=== PATIENT | male | born 1990 | race African-American/Black ===

== ENCOUNTER 2019-03-23 01:56 | Emergency (ER) | payer OTHER ==
--- NOTE | 2019-03-23 02:39 | ER ---
Nurse's Notes [facility] Name: Christel Belcher Age: 29 yrs Sex: Male : 1990 Arrival Date: 03/23/2019 Time: 02:02 Bed 5 Private MD: Diagnosis: Acute pharyngitis;Acute upper respiratory infection, unspecified Presentation: 03/23 02:00 Presenting complaint: Patient states: Cough and sore throat since Sunday. Transition of cc3 care: patient was not received from another setting of care. Onset of symptoms was March 17, 2019. Risk Assessment: Do you want to hurt yourself or someone else? Patient reports no desire to harm self or others. Initial Sepsis Screen: Does the patient meet any 2 criteria? No. Patient's initial sepsis screen is negative. Does the patient have a suspected source of infection? Yes: Productive cough/pneumonia. Care prior to arrival: None. 02:00 Method Of Arrival: Ambulatory cc3 02:00 Acuity: JAMES 4 cc3 Historical: - Allergies: 02:00 No Known Allergies; cc3 - PMHx: 02:00 bilateral eye problem; cc3 - PSHx: 02:00 eye surgery; cc3 - Immunization history:: Adult Immunizations not up to date. - Social history:: Smoking status: Patient/guardian denies using tobacco, never smoked. - Ebola Screening: : No symptoms or risks identified at this time. Screenin:00 Abuse screen: Denies threats or abuse. Denies injuries from another. Nutritional cc3 screening: No deficits noted. Tuberculosis screening: No symptoms or risk factors identified. Fall Risk Ambulatory Aid- None/Bed Rest/Nurse Assist (0 pts). Gait- Normal/Bed Rest/Wheelchair (0 pts) Mental Status- Oriented to own ability (0 pts). Assessment: 02:00 General: Appears in no apparent distress. uncomfortable, Behavior is calm, cooperative, cc3 appropriate for age. Pain: Denies pain. Neuro: Level of Consciousness is awake, alert, obeys commands, Oriented to person, place, time, situation, Appropriate for age. Cardiovascular: Denies chest pain, Heart tones S1 S2 present Capillary refill < 3 seconds in bilateral fingers Patient's skin is warm and dry. Respiratory: Airway is patent Respiratory effort is even, unlabored, Respiratory pattern is regular, symmetrical. GI: Abdomen is round non-distended. : No signs and/or symptoms were reported regarding the genitourinary system. EENT: Throat with gag reflex present. Derm: Skin is intact, is healthy with good turgor, Skin is normal, black. Musculoskeletal: Circulation, motion, and sensation intact. Range of motion: intact in all extremities. 02:00 Respiratory: Breath sounds are clear bilaterally. cc3 03:00 Reassessment: Patient appears in no apparent distress at this time. Patient and/or cc3 family updated on plan of care and expected duration. Pain level reassessed. Patient is alert, oriented x 3, equal unlabored respirations, skin warm/dry/pink. JOEY Quinteros discharged the patient home with prescriptions given. No IV cannula in situ. Patient left ER vitally stable and ambulatory with his . No valuables left in the patient's room. Patient denies pain at this time. Vital Signs: 02:00 BP 133 / 90; Pulse 77; Resp 18 S; Temp 98.5(O); Pulse Ox 100% on R/A; Weight 106.59 kg cc3 (R); Height 6 ft. 0 in. (182.88 cm) (R); Pain 0/10; 03:00 BP 130 / 87; Pulse 75; Resp 18 S; Pulse Ox 100% on R/A; Pain 0/10; cc3 02:00 Body Mass Index 31.87 (106.59 kg, 182.88 cm) cc3 ED Course: 02:00 Arm band placed on right wrist. Patient notified of wait time. cc3 02:00 Patient has correct armband on for positive identification. Bed in low position. Call cc3 light in reach. Side rails up X 1. Pulse ox on. NIBP on. 02:02 Patient arrived in ED. ds1 02:04 Yamil Quinteros PA is PHCP. [facility] 02:04 David Kelley MD is Attending Physician. [facility] 02:05 Eliana Patel is Primary Nurse. cc3 02:18 Triage completed. cc3 03:00 No provider procedures requiring assistance completed. Patient did not have IV access cc3 during this emergency room visit. Administered Medications: No medications were administered Outcome: 02:36 Discharge ordered by . [facility] 03:00 Discharged to home ambulatory, with family. cc3 03:00 Condition: stable 03:00 Discharge instructions given to patient, Instructed on discharge instructions, follow up and referral plans. medication usage, Demonstrated understanding of instructions, follow-up care, medications, Prescriptions given X 3. 03:11 Patient left the ED. cc3 Signatures: Yamil Quinteros PA PA jmm Sanford, Demi ds1 Eliana Patel cc3
--- NOTE | 2019-03-23 02:40 | EDPHYS ---
Physician Documentation [facility] Name: Christel Belcher Age: 29 yrs Sex: Male : 1990 Arrival Date: 03/23/2019 Time: 02:02 Bed 5 Private MD: ED Physician David Kelley HPI: 03/23 02:33 This 29 yrs old Black Male presents to ER via Ambulatory with complaints of Cough, Sore jmm Throat. 02:33 The patient or guardian reports cough. Onset: The symptoms/episode began/occurred jmm gradually, 5 day(s) ago. Associated signs and symptoms: Pertinent positives: sore throat. This is a 29 year old male that presents to the ED with complaints of cough sore throat beginning 5 days ago. Patient states children had similar symptoms. Denies fever or chills. . Historical: - Allergies: 02:00 No Known Allergies; cc3 - PMHx: 02:00 bilateral eye problem; cc3 - PSHx: 02:00 eye surgery; cc3 - Immunization history:: Adult Immunizations not up to date. - Social history:: Smoking status: Patient/guardian denies using tobacco, never smoked. - Ebola Screening: : No symptoms or risks identified at this time. ROS: 02:33 Constitutional: Negative for fever, chills, and weight loss, Cardiovascular: Negative jmm for chest pain, palpitations, and edema. 02:33 ENT: Positive for sore throat. 02:33 Respiratory: Positive for cough. 02:33 All other systems are negative. Exam: 02:33 Constitutional: This is a well developed, well nourished patient who is awake, alert, jmm and in no acute distress. Head/Face: atraumatic. Eyes: EOMI, no conjunctival erythema appreciated 02:33 Cardiovascular: Regular rate and rhythm. No edema appreciated 02:33 Abdomen/GI: Non distended, soft Back: Normal ROM Skin: General appearance color normal MS/ Extremity: Moves all extremities, no obvious deformities appreciated, no edema noted to the lower extremities Neuro: Awake and alert, normal gait Psych: Behavior is normal, Mood is normal, Patient is cooperative and pleasant 02:33 ENT: TM's: are normal, Posterior pharynx: erythema, that is moderate. 02:33 Neck: C-spine: appears grossly normal, ROM/movement: is normal. 02:33 Respiratory: the patient does not display signs of respiratory distress, Respirations: normal, Breath sounds: are clear throughout. Vital Signs: 02:00 BP 133 / 90; Pulse 77; Resp 18 S; Temp 98.5(O); Pulse Ox 100% on R/A; Weight 106.59 kg cc3 (R); Height 6 ft. 0 in. (182.88 cm) (R); Pain 0/10; 03:00 BP 130 / 87; Pulse 75; Resp 18 S; Pulse Ox 100% on R/A; Pain 0/10; cc3 02:00 Body Mass Index 31.87 (106.59 kg, 182.88 cm) cc3 MDM: 02:07 Patient medically screened. [facility] 02:35 Data reviewed: vital signs, nurses notes. Counseling: I had a detailed discussion with juvenal the patient and/or guardian regarding: the historical points, exam findings, and any diagnostic results supporting the discharge/admit diagnosis, the need for outpatient follow up, to return to the emergency department if symptoms worsen or persist or if there are any questions or concerns that arise at home. ED course: Patient is alert and non toxic in appearance in the ED. No signs of resp distress. Patient given strict return precautions. Patient understood and agrees with the plan of care. . 03/23 02:21 Order name: Strep; Complete Time: 02:44 juvenal Administered Medications: No medications were administered Disposition: 03/23/19 02:36 Discharged to Home. Impression: Acute pharyngitis, Acute upper respiratory infection, unspecified. - Condition is Stable. - Discharge Instructions: Pharyngitis, Upper Respiratory Infection, Adult. - Prescriptions for Medrol ([place]) 4 mg Oral Tablets, Dose Pack - take 1 tablet by ORAL route as directed - follow package instructions; 1 packet. Bromfed DM 2- 30-10 mg/5 mL Oral syrup - take 10 milliliter by ORAL route every 4 hours; 120 milliliter. Amoxicillin 400 mg/5 mL Oral Suspension for Reconstitution - take 10 milliliter by ORAL route every 12 hours for 10 days MAX dose = 1750mg/day; 220 milliliter. - Medication Reconciliation Form, Thank You Letter, Antibiotic Education, Prescription Opioid Use form. - Follow up: Private Physician; When: 2 - 3 days; Reason: Recheck today's complaints, Continuance of care, Re-evaluation by your physician. Addendum: 03/25/2019 15:00 Co-signature as Attending Physician, David Kelley MD. g s Signatures: Dispatcher [employer] EDMS Yamil Quinteros PA PA jmm Starr, Gregory, MD MD Eliana Patel 3 Corrections: (The following items were deleted from the chart) 03/23 03:11 02:36 03/23/2019 02:36 Discharged to Home. Impression: Acute pharyngitis; Acute upper cc3 respiratory infection, unspecified. Condition is Stable. Forms are Medication Reconciliation Form, Thank You Letter, Antibiotic Education, Prescription Opioid Use. Follow up: Private Physician; When: 2 - 3 days; Reason: Recheck today's complaints, Continuance of care, Re-evaluation by your physician. juvenal
[2019-03-23 03:54] VITALS: BP 133/90; TEMP 98.5; O2SAT 100
== END 2019-03-23 03:11 | disposition home or self-care (01) ==
LOC: ER 01:56
DX: J06.9 Acute upper respiratory infection, unspecified (principal); R05 Cough
CPT/HCPCS: 87081; 99283

== ENCOUNTER → 2023-08-17 | Emergency (ER) | payer OTHER ==
[~2023-08-17] MED LIST: HYDROCODONE/CHLORPHEN 5 ML/OSYR ONE
--- OUTSIDE RECORDS SUMMARY | 2023-08-17 21:45 | XMS REPORT | Continuity of Care Document ---
Author Name Unknown Address [address] [place], [place] [address]ect Address [address] [place] [id number] Care Team Providers Care Supervisor Insecticide Name Role Phone Unavailable Unavailable Unavailable
[2023-08-17 23:10] LABS: SARS-CoV-2 Antigen Rapid Res Negative (Negative)
--- NOTE | 2023-08-17 23:37 | EDPHYS ---
Physician Documentation [facility] Name: Christel Belcher Age: 33 yrs Sex: Male : 1990 Arrival Date: 08/17/2023 Time: 21:42 Bed IW2 Private MD: ED Physician Deni Rivera HPI: 08/17 22:45 This 33 yrs old Black Male presents to ER via Ambulatory with complaints of Fever, Sore cp Throat, Cough, Congestion. 22:45 The patient reports fever, not measured (subjective). Associated signs and symptoms: cp Pertinent positives: cough, runny nose, sore throat. Severity of symptoms: in the emergency department the symptoms are unchanged despite home interventions, symptoms times 3 days. Historical: - Allergies: 22:38 No Known Allergies; vc1 - Home Meds: 22:38 None [Active]; vc1 - PMHx: 22:38 bilateral eye problem; vc1 - PSHx: 22:38 eye surgery as an infant (bilateral eye problem); vc1 - Immunization history:: Client reports receiving the 2nd dose of the Covid vaccine, Flu vaccine is not up to date. - Social history:: Smoking status: Patient denies any tobacco usage or history of. ROS: 22:50 Constitutional: Negative for fever, cp 22:50 Eyes: Negative for injury, pain, redness, and discharge, cp 22:50 ENT: Positive for sore throat, Negative for drainage from ear(s), ear pain, difficulty swallowing, difficulty handling secretions, 22:50 Respiratory: Positive for cough, with no reported sputum, Negative for shortness of breath, wheezing, 22:50 Abdomen/GI: Negative for abdominal pain, vomiting, diarrhea, constipation, 22:50 Neuro: Negative for headache, weakness, 22:50 All other systems are negative, Exam: 22:55 Constitutional: The patient appears in no acute distress, alert, awake, non-toxic, well cp developed, well nourished, 22:55 Head/Face: Normocephalic, atraumatic. cp 22:55 Eyes: Periorbital structures: appear normal, Conjunctiva: normal, no exudate, no injection, Sclera: no appreciated abnormality, Lids and lashes: appear normal, bilaterally, 22:55 ENT: External ear(s): are unremarkable, Ear canal(s): are normal, clear, TM's: dullness, bilaterally, Nose: nasal drainage, that is minimal, Mouth: Lips: moist, Oral mucosa: moist, Posterior pharynx: Airway: no evidence of obstruction, patent, Tonsils: no enlargement, no exudate, erythema, that is mild, exudate, is not appreciated, 22:55 Neck: ROM/movement: is normal, is supple, without pain, no range of motions limitations, no meningismus, Lymph nodes: no appreciated lymphadenopathy, 22:55 Chest/axilla: Inspection: normal, 22:55 Cardiovascular: Rate: normal, 22:55 Respiratory: the patient does not display signs of respiratory distress, Respirations: normal, no use of accessory muscles, no retractions, labored breathing, is not present, Breath sounds: decreased breath sounds, are not appreciated, stridor, is not appreciated, + upper airway congestion. wheezing: is not appreciated, 22:55 Abdomen/GI: Exam negative for discomfort, distension, guarding, Inspection: abdomen appears normal, Vital Signs: 22:35 BP 119 / 73; Pulse 96; Resp 18; Temp 97.5; Pulse Ox 99% ; Weight 106.59 kg; Height 6 vc1 ft. 0 in. ; Pain 10/10; 23:45 BP 121 / 73; Pulse 91; Resp 18; Temp 97.9(O); Pulse Ox 98% on R/A; tl4 22:35 Body Mass Index 31.87 (106.59 kg, 182.88 cm) vc1 22:35 Pain Scale: Adult vc1 MDM: 22:36 Patient medically screened. cp 23:00 Differential diagnosis: viral Infection, bacterial infection, URI, bronchitis, cp pneumonia. 23:36 Data reviewed: vital signs, nurses notes, lab test result(s), radiologic studies, plain cp films. 23:36 Counseling: I had a detailed discussion with the patient and/or guardian regarding the cp historical points, exam findings, and any diagnostic results supporting the discharge/admit diagnosis, lab results, radiology results, to return to the emergency department if symptoms worsen or persist or if there are any questions or concerns that arise at home. 08/17 22:35 Order name: Strep vc1 08/17 22:35 Order name: SARS RAPID; Complete Time: 23:35 vc1 08/17 22:35 Order name: Flu; Complete Time: 23:35 vc1 08/17 23:06 Order name: Throat Culture EDMS 08/17 22:35 Order name: CXR XRAY vc1 Administered Medications: 23:38 CANCELLED (Other Intervention Used): tessalon mg PO once cp 23:45 Drug: Tussionex Pennkinetic ER PO Suspension 5 ml PO once Route: PO; tl4 23:47 Follow up: Response: Medication administered at discharge. tl4 Disposition Summary: 08/17/23 23:37 Discharge Ordered Notes: Location: Home cp Problem: new cp Symptoms: are unchanged cp Condition: Stable cp Diagnosis - Cough cp - Acute pharyngitis, unspecified cp Followup: cp - With: Private Physician - When: 2 - 3 days - Reason: Worsening of condition Discharge Instructions: - Discharge Summary Sheet cp - Pharyngitis cp - Sore Throat cp - Cool Mist Vaporizer cp - Cough, Adult cp Forms: - Medication Reconciliation Form cp - Thank You Letter cp - Antibiotic Education cp - Prescription Opioid Use cp - Patient Portal Instructions cp - Leadership Thank You Letter cp Prescriptions: - Bromfed DM 2-30-10 mg/5 mL Oral syrup - administer 10 milliliter ORAL route 4 times per day as needed for cold cp symptoms; 240 milliliter; Refills: 0, Product Selection Permitted Signatures: Dispatcher [employer] EDIA Deni Obrien PA PA cp Calcote, Vanessa, RN RN vc1 Amilcar Batista RN RN tl4 Corrections: (The following items were deleted from the chart) 23:38 23:36 Tessalon Perle PO 200 mg PO once ordered. cp cp
--- NOTE | 2023-08-17 23:37 | ER ---
Nurse's Notes [facility] Name: Christel Belcher Age: 33 yrs Sex: Male : 1990 Arrival Date: 08/17/2023 Time: 21:42 Bed IW2 Private MD: Diagnosis: Cough;Acute pharyngitis, unspecified Presentation: 08/17 22:35 Chief complaint: Patient states: I have had a sore throat for 2-3 days, I think I have vc1 strep. I think I was running a fever yesterday and have a bad cough. Coronavirus screen: Vaccine status: Patient reports receiving the 2nd dose of the covid vaccine. Client denies travel out of the [place] in the last 14 days. congestion, cough unrelated to allergies, fever, sore throat, Client presents with at least one sign or symptom that may indicate coronavirus-19. Ebola Screen: Patient negative for fever greater than or equal to 101.5 degrees Fahrenheit, and additional compatible Ebola Virus Disease symptoms Patient denies exposure to infectious person. Patient denies travel to an Ebola-affected area in the 21 days before illness onset. No symptoms or risks identified at this time. Initial Sepsis Screen: Does the patient meet any 2 criteria? No. Patient's initial sepsis screen is negative. Does the patient have a suspected source of infection? No. Patient's initial sepsis screen is negative. Risk Assessment: Do you want to hurt yourself or someone else? Patient reports no desire to harm self or others. Onset of symptoms was August 17, 2023. 22:35 Method Of Arrival: Ambulatory vc1 22:35 Acuity: JAMES 4 vc1 Triage Assessment: 22:39 General: Appears in no apparent distress. ill, Behavior is calm, cooperative, vc1 appropriate for age. Pain: Complains of pain in left aspect of posterior pharynx and right aspect of posterior pharynx Pain does not radiate. Pain currently is 10 out of 10 on a pain scale. Aggravated by eating, drinking, coughing Noted to be crying. EENT: Reports pain when swallowing. Neuro: Level of Consciousness is awake, alert, obeys commands, Oriented to person, place, time, situation, Appropriate for age. Cardiovascular: No deficits noted. Respiratory: Airway is patent Respiratory effort is even, unlabored, Respiratory pattern is regular, symmetrical. Respiratory: Reports cough that is pain with cough Pain is 10 out of 10 on a pain scale. GI: No deficits noted. No signs and/or symptoms were reported involving the gastrointestinal system. : No deficits noted. No signs and/or symptoms were reported regarding the genitourinary system. Derm: No deficits noted. No signs and/or symptoms reported regarding the dermatologic system. Musculoskeletal: No deficits noted. No signs and/or symptoms reported regarding the musculoskeletal system. Historical: - Allergies: 22:38 No Known Allergies; vc1 - Home Meds: 22:38 None [Active]; vc1 - PMHx: 22:38 bilateral eye problem; vc1 - PSHx: 22:38 eye surgery as an infant (bilateral eye problem); vc1 - Immunization history:: Client reports receiving the 2nd dose of the Covid vaccine, Flu vaccine is not up to date. - Social history:: Smoking status: Patient denies any tobacco usage or history of. Screenin:41 [facility] ED Fall Risk Assessment (Adult) History of falling in the last 3 months, vc1 including since admission No falls in past 3 months (0 pts) Confusion or Disorientation No (0 pts) Intoxicated or Sedated No (0 pts) Impaired Gait No (0 pts) Mobility Assist Device Used No (0 pt) Altered Elimination No (0 pt) Score/Fall Risk Level 0 - 2 = Low Risk Oriented to surroundings, Maintained a safe environment, Educated pt \T\ family on fall prevention, incl call for assistance when getting out of bed. Abuse screen: Denies threats or abuse. Nutritional screening: No deficits noted. Tuberculosis screening: No symptoms or risk factors identified. Assessment: 23:45 Reassessment: No changes from previously documented assessment. Patient and/or family tl4 updated on plan of care and expected duration. Pain level reassessed. Patient is alert, oriented x 3, equal unlabored respirations, skin warm/dry/pink. Respiratory: Airway is patent Respiratory effort is even, unlabored, Respiratory pattern is regular, Breath sounds are clear bilaterally. 23:47 EENT: Throat is pink. tl4 Vital Signs: 22:35 BP 119 / 73; Pulse 96; Resp 18; Temp 97.5; Pulse Ox 99% ; Weight 106.59 kg; Height 6 vc1 ft. 0 in. ; Pain 10/10; 23:45 BP 121 / 73; Pulse 91; Resp 18; Temp 97.9(O); Pulse Ox 98% on R/A; tl4 22:35 Body Mass Index 31.87 (106.59 kg, 182.88 cm) vc1 22:35 Pain Scale: Adult vc1 ED Course: 21:48 Patient arrived in ED. gm2 22:05 Deni Obrien PA is PHCP. cp 22:05 Deni Rivera MD is Attending Physician. cp 22:38 Triage completed. vc1 22:38 Arm band placed on right wrist. vc1 22:41 Patient has correct armband on for positive identification. placed back in lobby. vc1 23:30 CXR XRAY In Process Unspecified. EDMS 23:46 Provided Education on: ed process. tl4 23:46 No provider procedures requiring assistance completed. Patient did not have IV access tl4 during this emergency room visit. Administered Medications: 23:38 CANCELLED (Other Intervention Used): tessalon [id number] mg PO once cp 23:45 Drug: Tussionex Pennkinetic ER PO Suspension 5 ml PO once Route: PO; tl4 23:47 Follow up: Response: Medication administered at discharge. tl4 Medication: 22:41 VIS not applicable for this client. vc1 Outcome: 23:37 Discharge ordered by . cp 23:46 Discharged to home ambulatory, with family, tl4 23:46 Condition: stable 23:46 Discharge instructions given to patient, Instructed on discharge instructions, follow up and referral plans. medication usage, Demonstrated understanding of instructions, follow-up care, medications, Prescriptions given X 1, 23:47 Patient left the ED. tl4 Signatures: Dispatcher [employer] EDPA Deni Obrien PA PA cp Dodie Mendosa RN RN vc1 Steffanie Mccord gm2 Amilcar Batista RN RN tl4
[2023-08-18 00:42] VITALS: BP 121/73; TEMP 97.9; O2SAT 98
--- NOTE | 2023-08-18 20:56 | RAD REPORT ---
EXAM DESCRIPTION: RAD - Chest Single View - 08/17/2023 11:28 pm CLINICAL HISTORY: The patient is 33 years old and is Male; Cough;Congestion TECHNIQUE: Frontal view of the chest. COMPARISON: No relevant prior studies available. FINDINGS: Lungs: Unremarkable. No consolidation. Pleural space: Unremarkable. No pneumothorax. Heart: Unremarkable. Mediastinum: Unremarkable. Normal mediastinal contour. Bones/joints: No acute findings. IMPRESSION: No acute findings in the chest. Electronically signed by: Uriah Bloom MD 08/18/2023 12:21 AM SHANK INSPECTOR Due to temporary technical issues with the PACS/Fluency reporting system, reports are being signed by the in house radiologists without review as a courtesy to insure prompt reporting. The interpreting radiologist is fully responsible for the content of the report.
== END ==
LOC: ER 21:42
DX: R05.9 Cough, unspecified (principal); J02.9 Acute pharyngitis, unspecified; Z11.52 Encounter for screening for COVID-19
CPT/HCPCS: 36415; 71045; 87070; 87081; 87804; 87811

== ENCOUNTER 2024-09-05 09:12 | Emergency (ER) | payer OTHER ==
--- OUTSIDE RECORDS SUMMARY | 2024-09-05 09:14 | XMS REPORT | Continuity of Care Document ---
Author Name Unknown Address [address] [facility]. [address] [place] [address] [facility] [address] [facility] [address] [place] [address] Care Team Providers Care Math Specialist Name Role Phone Pcp, Patient Does Not Have A Primary Care Physic fabricio Rhonda Hermosillo Attending Clinician Etelvina Monteiro Attending Clinician [phone] Unknown, Attending Attending Clinician ETELVINA Rosado Attending Clinician Unavailable Doctor Unassigned, Scammon Attending Clinician U navailable Payers Payer Name Policy Type Policy Number Effective Date Expirati on Date Source Problems Condition Name Condition Details Condition Category Status Onset Date Resolution Date Last Treatment Date Treating Clinician Comments Source [id number] Pure hyperchole sterolemia Problem [facility] [id number] Seasonal allergies Problem [facility] [id number] Bilateral blindness Problem [facility] [id number] Other obesity due to excess calories Problem [facility] [id number] Body mass index [BMI] 32.0-32.9, adult Problem [facility] Allergies, Adverse Reactions, Alerts Allergy Name Allergy Type Status Severity Reaction(s) Onset Date Inactive Date Treating Clinician Comments Source NO KNOWN ALLERGIE S Drug Class Active [facility] Social History Social Habit Start Date Stop Date Quantity Comments Source History of Tobacco Use [facility] Sex Assigned At [facility] Smoking Status Start Date Stop Date Source Tobacco smoking consumption unknown [facility] Never Smoker [facility] Medications Ordered Medication Name Filled Medication Name Start Date Stop Date Current Medication? Ordering Clinician Indication Dosage Frequency Signature (SIG) Comments Components Source Promethazin e-DM 6.25-15 MG/5ML Promethazin e-DM 6.25-15 MG/5ML 2023-06 00:00: 00 No 5{ml_as _needed } QID Promethazi ne-DM 6.25-15 MG/5ML Kenalog (Triamcinol one) Kenalog (Triamcinol one) 2023-06 00:00: 00 No 40mg [facility] azithromyci n 250 mg tablet 08-25 00:00: 00 Yes [id number] 250mg Take 1 tablet by mouth in the morning. Two tablets on day 1 and one tablet on days 2 through 5. [facility] ondansetron (ZOFRAN ODT) 4 mg disintegrat ing tablet 2018-06 00:00: 00 Yes [id number] 4mg Take 1 tablet by mouth every 8 (eight) hours as needed for Nausea and Vomiting (N/V). [facility] traMADol (ULTRAM) 50 mg tablet 2018-06 00:00: 00 Yes [id number] 50mg Take 1 tablet by mouth every 8 (eight) hours as needed for Pain (scale 4-6). [facility] predniSONE (DELTASONE) 20 mg tablet 12-03 00:00: 00 Yes Oral prednisone taper over 4 weeksWeek 1 - take 3 tablets (60 mg) daily for 7 days.Week 2 - take 2 tablets (40 mg) daily for 7 days.Week 3 - take 1 tablets (20 mg) daily for 7 days.Week 4 - take 1/2 tablets ( 10 mg) daily for 3 days. [facility] Vital Signs Vital Name Observation Time Observation Value Comments S ource height 2024-06-06 09:30:00 73 [in_i] Commo n [facility] weight 2024-06-06 09:30:00 232 [lb_av] Comm on [facility] temperature 2024-06-06 09:30:00 97.8 [degF] Com mon [facility] bmi 2024-06-06 09:30:00 30.61 kg/m2 Comm on [facility] oximetry 2024-06-06 09:30:00 98 % Commo n [facility] blood pressure systolic 2024-06-06 09:30:00 130 mm[Hg] [facility] pressure diastolic 2024-06-06 09:30:00 70 mm[Hg] Common [facility] height 2024-05-26 09:45:00 73 [in_i] Commo n [facility] weight 2024-05-26 09:45:00 233 [lb_av] Comm on [facility] temperature 2024-05-26 09:45:00 97.8 [degF] Com mon [facility] bmi 2024-05-26 09:45:00 30.74 kg/m2 Comm on [facility] oximetry 2024-05-26 09:45:00 98 % Commo n [facility] respiratory rate 2024-05-26 09:45:00 16 /min Common [facility] blood pressure systolic 2024-05-26 09:45:00 120 mm[Hg] [facility] blood pressure diastolic 2024-05-26 09:45:00 60 mm[Hg] [facility] weight 2024-04-22 09:40:00 234 [lb_av] Comm on [facility] temperature 2024-04-22 09:40:00 98 [degF] Comm on [facility] bmi 2024-04-22 09:40:00 30.87 kg/m2 Comm on [facility] oximetry 2024-04-22 09:40:00 96 % Commo n [facility] respiratory rate 2024-04-22 09:40:00 16 /min Common [facility] blood pressure systolic 2024-04-22 09:40:00 130 mm[Hg] Common [facility] blood pressure diastolic 2024-04-22 09:40:00 86 mm[Hg] [facility] height 2024-04-22 09:40:00 73 [in_i] Commo n [facility] weight 2024-04-22 09:40:00 234 [lb_av] Comm on [facility] temperature 2024-04-22 09:40:00 98 [degF] Comm on [facility] bmi 2024-04-22 09:40:00 30.87 kg/m2 Comm on [facility] oximetry 2024-04-22 09:40:00 96 % Commo n [facility] respiratory rate 2024-04-22 09:40:00 16 /min Common [facility] blood pressure systolic 2024-04-22 09:40:00 130 mm[Hg] Common [facility] blood pressure diastolic 2024-04-22 09:40:00 86 mm[Hg] Common [facility] height 2024-04-22 09:40:00 73 [in_i] Commo n [facility] height 2023-10-22 09:40:00 73 [in_i] Commo n [facility] weight 2023-10-22 09:40:00 243 [lb_av] Comm on [facility] temperature 2023-10-22 09:40:00 97.9 [degF] Com mon [facility] bmi 2023-10-22 09:40:00 32.06 kg/m2 Comm on [facility] oximetry 2023-10-22 09:40:00 98 % Commo n [facility] respiratory rate 2023-10-22 09:40:00 18 /min [facility] blood pressure systolic 2023-10-22 09:40:00 125 mm[Hg] [facility] blood pressure diastolic 2023-10-22 09:40:00 84 mm[Hg] [facility] height 2023-09-24 10:40:00 73 [in_i] Commo n [facility] weight 2023-09-24 10:40:00 245 [lb_av] Comm on [facility] temperature 2023-09-24 10:40:00 98.3 [degF] Com mon [facility] bmi 2023-09-24 10:40:00 32.32 kg/m2 Comm on [facility] oximetry 2023-09-24 10:40:00 100 % Commo n [facility] respiratory rate 2023-09-24 10:40:00 18 /min [facility] blood pressure systolic 2023-09-24 10:40:00 131 mm[Hg] [facility] blood pressure diastolic 2023-09-24 10:40:00 89 mm[Hg] [facility] Systolic blood pressure 2023-08-26 23:20:00 115 mm[Hg] [facility] Diastolic blood pressure 2023-08-26 23:20:00 81 mm[Hg] [facility] Heart rate 2023-08-26 23:20:00 122 /min [facility] Body temperature 2023-08-26 23:20:00 37.39 Renita [facility] Respiratory rate 2023-08-26 23:20:00 17 /min [facility] Body weight 2023-08-26 23:20:[address] [facility] BMI 2023-08-26 23:20:00 32.73 kg/m2 [facility] Oxygen saturation in Arterial blood by Pulse oximetry 2023-08-26 23:20:00 99 /min [facility] Procedures Procedure Date / Time Performed Performing Clinicia n Source ASSIGNMENT OF BENEFITS 2023-08-26 23:10:44 Docto r Unassigned, Scammon [facility] Encounters Start Date/Time End Date/Time Encounter Type Admission Type Attending [facility] Care Facility Care Department Encounter ID Source 2023-09-24 09:53:02 Outpatient Rhonda Hermosillo STLMLC STLMLC [id number] [facility] 2024-06-06 00:00:00 2024-06-06 00:00:00 OFFICE VISIT ESTAB PT LEVEL 3 STLMLC STLMLC [id number] [facility] 2024-06-06 00:00:00 2024-06-06 00:00:00 (TEL) STLMLC STLMLC [id number] [facility] 2024-06-05 00:00:00 2024-06-05 00:00:00 (TEL) STLMLC STLMLC [id number] [facility] 2024-05-26 00:00:00 2024-05-26 00:00:00 OFFICE VISIT ESTAB PT LEVEL 3 STLMLC STLMLC [id number] [facility] 2024-04-22 00:00:00 2024-04-22 00:00:00 OFFICE VISIT ESTAB PT LEVEL 3 STLMLC STLMLC [id number] [facility] 2024-04-22 00:00:00 2024-04-22 00:00:00 (TEL) STLMLC STLMLC [id number] [facility] 2024-04-22 00:00:00 2024-04-22 00:00:00 (INJ) Injection STLMLC STLMLC [id number] [facility] 2023-10-23 00:00:00 2023-10-23 00:00:00 (TEL) STLMLC STLMLC [id number] [facility] 2023-10-22 00:00:00 2023-10-22 00:00:00 (ESTPT) Establishe d Patient STLMLC STLC [id number] [facility] 2023-10-17 00:00:00 2023-10-17 00:00:00 (TEL) STLMLC STLMLC [id number] [facility] 2023-09-24 00:00:00 2023-09-24 00:00:00 PREV VISIT NEW AGE 18-39 STLC [facility] [id number] [facility] 2023-08-26 17:20:00 2023-08-26 17:40:00 Urgent Care Etelvina Obando Unknown, Attending [facility] LETICIA[facility] [id number] [facility] 2023-08-26 17:20:00 2023-08-26 17:20:00 Outpatient R ETELVINA [facility] [id number] [facility] 2023-08-26 00:00:00 2023-08-26 00:00:00 Orders Only Doctor Unassigned, Scammon [facility] [id number] [facility] Results Test Description Test Time Test Comments Results Result Co mments Source
--- NOTE | 2024-09-05 09:36 | ER ---
Nurse's Notes [facility] Name: Christel Belcher Age: 34 yrs Sex: Male : 1990 Arrival Date: 09/05/2024 Time: 09:12 Bed 16 Private MD: Diagnosis: Foreign body in right ear-Resolved Presentation: 09/05 09:23 Chief complaint: [place] something crawl into right ear last night, tried hot oil and hb water but feels like it is still there. Coronavirus screen: At this time, the client does not indicate any symptoms associated with coronavirus-19. Ebola Screen: No symptoms or risks identified at this time. Initial Sepsis Screen: Does the patient meet any 2 criteria? No. Patient's initial sepsis screen is negative. Does the patient have a suspected source of infection? No. Patient's initial sepsis screen is negative. Risk Assessment: Do you want to hurt yourself or someone else? Patient reports no desire to harm self or others. Onset of symptoms was September 05, 2024. 09:23 Method Of Arrival: Ambulatory hb 09:23 Acuity: JAMES 4 hb Triage Assessment: :25 General: Appears in no apparent distress. Behavior is calm, cooperative. Pain: Pain hb currently is 6 out of 10 on a pain scale. EENT: Reports FB in right ear. Neuro: Level of Consciousness is awake, alert, obeys commands, Oriented to person, place, time, situation. Cardiovascular: Patient's skin is warm and dry. Respiratory: Respiratory effort is even, unlabored, Respiratory pattern is regular, symmetrical. Historical: - Allergies: 09:24 No Known Allergies; hb - Home Meds: :24 None [Active]; hb - PMHx: :24 bilateral eye problem; hb - PSHx: 09:24 eye surgery as an (ra); hb - Immunization history:: Adult Immunizations up to date. - Infectious Disease History:: Denies. - Social history:: Smoking status: Patient denies any tobacco usage or history of. - Family history:: not pertinent. - Hospitalizations: : No recent hospitalization is reported. Screenin:25 [facility] ED Fall Risk Assessment (Adult) History of falling in the last 3 months, hb including since admission No falls in past 3 months (0 pts) Confusion or Disorientation No (0 pts) Intoxicated or Sedated No (0 pts) Impaired Gait No (0 pts) Mobility Assist Device Used No (0 pt) Altered Elimination No (0 pt) Score/Fall Risk Level 0 - 2 = Low Risk Oriented to surroundings, Maintained a safe environment, Educated pt \T\ family on fall prevention, incl call for assistance when getting out of bed. Abuse screen: Denies threats or abuse. Denies injuries from another. Nutritional screening: No deficits noted. Tuberculosis screening: No symptoms or risk factors identified. Assessment: 09:30 General: See triage assessment . hb Vital Signs: 09:23 BP 122 / 90; Pulse 88; Resp 16; Temp 97.7; Pulse Ox 98% on R/A; Weight 102.06 kg; hb Height 6 ft. 0 in. ; Pain 6/10; 09:23 Body Mass Index 30.52 (102.06 kg, 182.88 cm) hb 09:23 Pain Scale: Adult hb ED Course: 09:17 Patient arrived in ED. al6 09:18 Mc Jackson MD is Attending Physician. rn 09:24 Triage completed. hb 09:25 Arm band placed on. hb 09:25 Patient has correct armband on for positive identification. Provided Education on: hb bathroom location. 09:25 No provider procedures requiring assistance completed. Patient did not have IV access hb during this emergency room visit. 09:28 Rose Marie Calhoun, RN is Primary Nurse. ld1 Administered Medications: No medications were administered Medication: 09:25 VIS not applicable for this client. hb Outcome: 09:35 Discharge ordered by . rn 09:42 Discharged to home ld1 09:42 Condition: stable 09:42 Discharge instructions given to patient, Instructed on discharge instructions, follow up and referral plans. Demonstrated understanding of instructions, follow-up care, 09:42 Patient left the ED. ld1 Signatures: Mc Jackson MD MD rn Baxter, Heather, RN RN Rose Marie Calhoun RN RN ld1 Leonarda Snyder al6
--- NOTE | 2024-09-05 09:36 | EDPHYS ---
Physician Documentation [facility] Name: Christel Belcher Age: 34 yrs Sex: Male : 1990 Arrival Date: 09/05/2024 Time: 09:12 Bed 16 Private MD: ED Physician Mc Jackson HPI: 09/05 09:32 This 34 yrs old Black Male presents to ER via Ambulatory with complaints of Foreign rn Body In Ear. 09:32 The patient presents with a foreign body sensation. Onset: The symptoms/episode rn began/occurred this morning. Severity of symptoms: At their worst the symptoms were moderate in the emergency department the symptoms have improved. The patient has not experienced similar symptoms in the past. Patient reports felt something crawl in his right ear this morning. Put hot water and hot oil in his ear and irrigated. Not sure if still in there but still has mild foreign body sensation. Overall feels better. No drainage.. Historical: - Allergies: 09:24 No Known Allergies; hb - Home Meds: 09:24 None [Active]; hb - PMHx: 09:24 bilateral eye problem; hb - PSHx: 09:24 eye surgery as an (ra); hb - Immunization history:: Adult Immunizations up to date. - Infectious Disease History:: Denies. - Social history:: Smoking status: Patient denies any tobacco usage or history of. - Family history:: not pertinent. - Hospitalizations: : No recent hospitalization is reported. ROS: 09:32 Constitutional: Negative for fever, chills, and weight loss, ENT: Positive for right rn ear foreign body sensation Exam: 09:32 Constitutional: This is a well developed, well nourished patient who is awake, alert, rn and in no acute distress. ENT: Right ear canal clear of any foreign body. Mild irritation. Tympanic membrane intact. No bug or foreign body identified. Vital Signs: 09:23 BP 122 / 90; Pulse 88; Resp 16; Temp 97.7; Pulse Ox 98% on R/A; Weight 102.06 kg; hb Height 6 ft. 0 in. ; Pain 6/10; 09:23 Body Mass Index 30.52 (102.06 kg, 182.88 cm) hb 09:23 Pain Scale: Adult hb MDM: 09:18 Medical Screening Exam initiated rn 09:32 Differential diagnosis: foreign body, Ear canal irritation. Data reviewed: vital signs, rn nurses notes, and as a result, I will discharge patient. Counseling: I had a detailed discussion with the patient and/or guardian regarding the historical points, exam findings, and any diagnostic results supporting the discharge/admit diagnosis, the need for outpatient follow up, to return to the emergency department if symptoms worsen or persist or if there are any questions or concerns that arise at home. Special discussion: I discussed with the patient/guardian in detail that at this point there is no indication for admission to the hospital. It is understood, however, that if the symptoms persist or worsen the patient needs to return immediately for re-evaluation. 09:34 ED course: No foreign body identified in the ear canal. Most likely what he is feeling rn is foreign body sensation or irritation from trying to get it out. Reassured patient. Will discharge home with return precautions.. Administered Medications: No medications were administered Disposition Summary: 09/05/24 09:35 Discharge Ordered Notes: Location: Home rn Problem: new rn Symptoms: have improved rn Condition: Stable rn Diagnosis - Foreign body in right ear - Resolved rn Followup: rn - With: Private Physician - When: As needed - Reason: Recheck today's complaints, Re-evaluation by your physician Discharge Instructions: - Discharge Summary Sheet rn - Ear Foreign Body rn Forms: - Medication Reconciliation Form rn - Antibiotic warning analyst - Prescription Opioid Use rn - Patient Portal Instructions rn - Leadership Thank You Letter rn Signatures: Mc Jackson MD MD rn Baxter, Heather, RN RN
[2024-09-05 09:49] VITALS: BP 122/90; TEMP 97.7; O2SAT 98
== END 2024-09-05 09:42 | disposition home or self-care (01) ==
LOC: ER 09:12
DX: T16.1XXA Foreign body in right ear, initial encounter (principal)
CPT/HCPCS: 99282